=== PATIENT | female | born 2000 | race American Indian/Alaskan Native ===

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

== ENCOUNTER 2021-10-07 12:01 | Emergency (ER) | payer MEDICAID ==
[2021-10-07 14:19] LABS: HCG Qualitative,Urine Positive (Negative)
[2021-10-07 14:20] LABS: Bacteria,Urine 4+ /HPF (Negative); Bilirubin,Urine NEG (Negative); Blood,Urine MOD (Negative); Color,Urine Yellow (Yellow); Hyaline Casts,Urine 3 /LPF; Mucus,Urine 3+ /HPF; Urobilinogen,Urine < 2.0 mg/dL (<2.0)
[2021-10-07 15:02] LABS: Basophils # (Auto) 0.1 K/mm3 (0.0-0.1); Basophils % (Auto) 0.9 % (0.0-1.8); Eosinophils # (Auto) 0.2 K/mm3 (0.0-0.4); Eosinophils % (Auto) 3.1 % (0.0-4.3); Hematocrit 38.5 % (30.3-42.9); Lymphocytes # (Auto) 1.7 K/mm3 (1.2-5.4); Lymphocytes % (Auto) 28.9 % (13.4-35.0); Mean Corpuscular HGB Conc 31 % (30-34); Mean Corpuscular Volume 79 fl (79-97); Monocytes # (Auto) 0.4 K/mm3 (0.0-0.8); Monocytes % (Auto) 6.8 % (0.0-7.3); Platelet Count 288 K/mm3 (140-440); Red Blood Count 4.86 M/mm3 (3.65-5.03); Red Cell Distribution Width 18.7 % (13.2-15.2)
[2021-10-07 15:25] LABS: Alanine Aminotransferase 10 units/L (7-56); Albumin 4.9 g/dL (3.9-5); Blood Urea Nitrogen 7 mg/dL (7-17); Calcium 9.8 mg/dL (8.4-10.2); Hemolysis Index 6
[2021-10-07 15:27] LABS: BUN/Creatinine Ratio 12
--- NOTE | 2021-10-07 15:37 | Emergency Department Report ---
ED General Adult HPI - General Chief complaint: Vaginal Bleeding Stated complaint: POSSIBLE MISCARRIAGE Time Seen by Provider: 10/07/21 12:38 Source: patient Mode of arrival: Ambulatory Limitations: No Limitations - History of Present Illness Initial comments: 21-year-old -[place] female patient presents with complaints of vaginal bleeding and intermittent lower abdominal cramping x1 week. Patient states she had a positive test 1 month ago, however she has not followed up with an [facility]. She states she is G4, . She denies any pain at this time. No dysuria/hematuria/urinary frequency, vaginal discharge/dyspareunia, or fev er/chills/sweats per patient. She also denies any other past medical history or heavy vaginal bleeding. Patient states the bleeding is mild and that she passed a large clot a few days ago. Severity scale (0 -10): 0 - Related Data Previous Rx's Medication Instructions Recorded Last Taken Type cefUROXime [Ceftin] 250 mg PO Q12H #14 tablet 10/23/17 Unknown Rx Ciprofloxacin HCl [Cipro] 500 mg PO BID #20 tablet 04/06/18 Unknown Rx Dicyclomine [Bentyl] 10 mg PO QID #40 capsule 04/06/18 Unknown Rx Ibuprofen [Ibuprofen 800] 800 mg PO TID PRN #30 tablet 04/06/18 Unknown Rx Pnv,Calcium 72/Iron/Folic Acid 1 each PO DAILY #30 tablet 07/10/18 Unknown Rx [ Plus Tablet] Amoxicillin/Potassium Clav 1 each PO BID 5 Days #10 tablet 10/07/21 Unknown Rx [Augmentin 875-125 Tablet] Allergies Allergy/AdvReac Type Severity Reaction Status Date / Time No Known Allergies Allergy Verified 10/07/21 14:30 ED Review of Systems ROS: Stated complaint: POSSIBLE MISCARRIAGE Other details as noted in HPI Constitutional: denies: chills, fever, malaise Respiratory: denies: cough, shortness of breath Gastrointestinal: as per HPI. denies: nausea, vomiting, diarrhea, constipation Genitourinary: abnormal menses. denies: urgency, dysuria, frequency, hematuria, discharge, dyspareunia Musculoskeletal: denies: back pain Skin: denies: rash, lesions, change in color Hematological/Lymphatic: denies: easy bleeding, easy bruising, swollen glands ED Past Medical Hx - Past Medical History Hx Hypertension: No Hx CVA: No Hx Heart Attack/AMI: No Hx Congestive Heart Failure: No Hx Diabetes: No Hx Deep Vein Thrombosis: No Hx Pulmonary Embolism: No Hx GERD: No Hx Liver Disease: No Hx Renal Disease: No Hx Sickle Cell Disease: No Hx Arthritis: No Hx Headaches / Migraines: No Hx Seizures: No Hx Kidney Stones: No Hx Psychiatric Treatment: No Hx Asthma: No Hx COPD: No Hx Tuberculosis: No Hx Dementia: No Hx HIV: No - Surgical History Hx Coronary Stent: No Hx Open Heart Surgery: No Hx Pacemaker: No Hx Internal Defibrillator: No Hx Cholecystectomy: No Hx Appendectomy: No Hx Breast Surgery: No Additional Surgical History: left arm - Social History Smoking Status: Never Smoker - Medications Home Medications: Home Medications Medication Instructions Recorded Confirmed Last Taken Type cefUROXime [Ceftin] 250 mg PO Q12H #14 tablet 10/23/17 10/07/21 Unknown Rx Ciprofloxacin HCl [Cipro] 500 mg PO BID #20 tablet 04/06/18 10/07/21 Unknown Rx Dicyclomine [Bentyl] 10 mg PO QID #40 capsule 04/06/18 10/07/21 Unknown Rx Ibuprofen [Ibuprofen 800] 800 mg PO TID PRN #30 tablet 04/06/18 10/07/21 Unknown Rx Pnv,Calcium 72/Iron/Folic Acid 1 each PO DAILY #30 tablet 07/10/18 10/07/21 Unknown Rx [ Plus Tablet] Amoxicillin/Potassium Clav 1 each PO BID 5 Days #10 tablet 10/07/21 Unknown Rx [Augmentin 875-125 Tablet] ED Physical Exam - General Limitations: No Limitations General appearance: alert, in no apparent distress - Head Head exam: Present: atraumatic, normocephalic - Eye Eye exam: Present: normal appearance. Absent: scleral icterus - Respiratory Respiratory exam: Present: normal lung sounds bilaterally. Absent: respiratory distress - Cardiovascular Cardiovascular Exam: Present: regular rate, normal rhythm - GI/Abdominal GI/Abdominal exam: Present: soft, normal bowel sounds. Absent: distended, tenderness, guarding, rebound, rigid - Neurological Exam Neurological exam: Present: alert, oriented X3, normal gait - Psychiatric Psychiatric exam: Present: normal affect, anxious (Pacing room) - Skin Skin exam: Present: warm, dry, intact, normal color. Absent: rash ED Course Vital Signs 10/07/21 10/07/21 10/07/21 12:18 14:24 14:26 Temperature 97.9 F 98.1 F 98.1 F Pulse Rate 90 73 73 Respiratory 15 16 16 Rate Blood Pressure 123/90 121/69 Blood Pressure 121/69 [Right] O2 Sat by Pulse 100 99 99 Oximetry 10/07/21 18:14 Temperature Pulse Rate 70 Respiratory 18 Rate Blood Pressure Blood Pressure 125/74 [Right] O2 Sat by Pulse 100 Oximetry ED Medical Decision Making - Lab Data Result diagrams: 10/07/21 14:41 10/07/21 14:41 - Medical Decision Making 21-year-old -[place] female patient presents with complaints of vaginal bleeding and intermittent lower abdominal cramping x1 week. Patient states she had a positive test 1 month ago, however she has not followed up with an [facility]. She states she is G4, . She denies any pain at this time. No dysuria/hematuria/urinary frequency, vaginal discharge/dyspareunia, or fever/ chills/sweats per patient. She also denies any other past medical history or heavy vaginal bleeding. Patient states the bleeding is mild and that she passed a large clot a few days ago. No further pain noted. Ultrasound shows viable 6-week IUP without other acute abnormalities. Vomiting is controlled at this time with antiemetics. Patient given IV fluids also. Discussed findings and importance of follow-up with [facility]. Patient is stable for discharge home. Discussed signs and symptoms that should prompt immediate return to the ED, she verbalized understanding Critical care attestation.: If time is entered above; I have spent that time in minutes in the direct care of this critically ill patient, excluding procedure time. ED Disposition Clinical Impression: Threatened miscarriage, UTI in Disposition: 01 HOME / SELF CARE / HOMELESS Is pt being admited?: No Condition: Stable Instructions: Threatened Miscarriage, and Urinary Tract Infection Additional Instructions: Please follow-up with your [facility] in 2 to 3 days for repeat beta hCG level. If you are unable to see your [facility], you may come into the ED for repeat labs Prescriptions: Amoxicillin/Potassium Clav [Augmentin 875-125 Tablet] 1 each PO BID 5 Days #10 tablet Referrals: [facility] [Provider Group] - 3-5 Days [facility] [Provider Group] - 3-5 Days [facility] [Provider Group] - 3-5 Days Forms: Work/School Release Form(ED)
--- NOTE | 2021-10-07 17:49 | Ultrasound Report ---
ULTRASOUND OBSTETRIC INDICATION / CLINICAL INFORMATION: vaginal bleeding. Clinical Gestational Age (GA) in weeks, days: 11, 1 TECHNIQUE: Transabdominal and Transvaginal. COMPARISON: None available. FINDINGS: GESTATIONAL SAC: There is a hypoechoic area within the endometrium suggesting a gestational sac. Ther e is a mean sac diameter 2.1 cm. This corresponds to a 7 week 0 day gestation. YOLK SAC: Not seen EMBRYO/FETUS: Not seen ADNEXA: No significant abnormality. FREE FLUID: None. ADDITIONAL FINDINGS: None. IMPRESSION: There is a hypoechoic area within the endometrium suggesting a gestational sac. The mean sac diameter measures 2.1 cm and corresponds to a 7 week 0 day gestation; however, this mean sac diameter is too small to assess for viability and therefore repeat ultrasound in 7-10 days is recommended. Signer Name: Avery Higgins DO Signed: 10/07/2021 5:45 PM Workstation Name: [id number]
[2021-10-07 18:16] VITALS: BP 125/74
== END 2021-10-07 18:15 | disposition home or self-care (01) ==
LOC: ED 12:01
DX: O20.0 Threatened abortion (principal); O23.41 Unspecified infection of urinary tract in pregnancy, first trimester; N39.0 Urinary tract infection, site not specified; Z3A.01 Less than 8 weeks gestation of pregnancy
CPT/HCPCS: 36415; 76801; 76817; 80053; 81001; 81025; 84702; 85025; 86900; 86901; 99284

== ENCOUNTER 2022-02-28 21:40 | Emergency (ER) | payer MEDICAID ==
[2022-02-28 23:52] LABS: Basophils # (Auto) 0.1 K/mm3 (0.0-0.1); Basophils % (Auto) 0.9 % (0.0-1.8); Eosinophils # (Auto) 0.2 K/mm3 (0.0-0.4); Eosinophils % (Auto) 3.7 % (0.0-4.3); Hematocrit 39.8 % (30.3-42.9); Hemoglobin 12.5 gm/dl (10.1-14.3); Lymphocytes # (Auto) 2.3 K/mm3 (1.2-5.4); Mean Corpuscular HGB Conc 31 % (30-34); Mean Corpuscular Volume 79 fl (79-97); Monocytes # (Auto) 0.3 K/mm3 (0.0-0.8); Monocytes % (Auto) 5.4 % (0.0-7.3); Platelet Count 325 K/mm3 (140-440); Red Blood Count 5.05 M/mm3 (3.65-5.03); Red Cell Distribution Width 18.4 % (13.2-15.2)
[2022-03-01 00:11] LABS: Blood Urea Nitrogen 13 mg/dL (7-17); Calcium 10.1 mg/dL (8.4-10.2); Hemolysis Index 6
[2022-03-01 00:13] LABS: BUN/Creatinine Ratio 22
--- NOTE | 2022-03-01 01:00 | Emergency Department Report ---
ED Female HPI - General Chief complaint: Vaginal Bleeding Stated complaint: POSSIBLE MISCARRIAGE MAYBE 2 MONTHS Time Seen by Provider: 03/01/22 00:26 Source: patient Mode of arrival: Ambulatory Limitations: No Limitations - History of Present Illness Initial comments: 21-year-old black female G5, P2 presents to the emergency room for evaluation of vaginal bleeding during . She states that she had a positive test 2 weeks ago then developed intermittent bleeding 4 days ago. She states that she did have some abdominal pain and cramping initially that has improved. She states that she had increased bleeding yesterday with clots that has improved today. She states that she had a miscarriage 4 to 5 months ago. Complaint: vaginal bleeding -: Gradual, days(s) (For) Radiation: non-radiating Severity: mild Severity scale (0 -10): 3 Quality: cramping Consistency: intermittent Are you Now?: Yes Associated Symptoms: vaginal bleeding. denies: vaginal discharge, abdominal pain, nausea/vomiting, fever/chills, headaches, loss of appetite, dysuria, hematuria, shortness of breath, syncope, weakness - Related Data Sexually active: Yes Previous Rx's Medication Instructions Recorded Last Taken Type cefUROXime [Ceftin] 250 mg PO Q12H #14 tablet 10/23/17 Unknown Rx Ciprofloxacin HCl [Cipro] 500 mg PO BID #20 tablet 04/06/18 Unknown Rx Dicyclomine [Bentyl] 10 mg PO QID #40 capsule 04/06/18 Unknown Rx Ibuprofen [Ibuprofen 800] 800 mg PO TID PRN #30 tablet 04/06/18 Unknown Rx Pnv,Calcium 72/Iron/Folic Acid 1 each PO DAILY #30 tablet 07/10/18 Unknown Rx [ Plus Tablet] Amoxicillin/Potassium Clav 1 each PO BID 5 Days #10 tablet 10/07/21 Unknown Rx [Augmentin 875-125 Tablet] Allergies Allergy/AdvReac Type Severity Reaction Status Date / Time No Known Allergies Allergy Verified 10/07/21 14:30 ED Review of Systems ROS: Stated complaint: POSSIBLE MISCARRIAGE MAYBE 2 MONTHS Other details as noted in HPI Comment: All other systems reviewed and negative Constitutional: denies: chills, fever ENT: denies: congestion Respiratory: denies: cough, shortness of breath, SOB with exertion, SOB at rest, stridor, wheezing Cardiovascular: denies: chest pain, palpitations, dyspnea on exertion, o rthopnea, edema, syncope, paroxysmal nocturnal dyspnea Gastrointestinal: abdominal pain. denies: nausea, vomiting, diarrhea, hematemesis, melena, hematochezia Genitourinary: denies: urgency, dysuria, frequency, hematuria, discharge, abnormal menses Musculoskeletal: back pain Neurological: denies: headache, weakness ED Past Medical Hx - Past Medical History Hx Hypertension: No Hx CVA: No Hx Heart Attack/AMI: No Hx Congestive Heart Failure: No Hx Diabetes: No Hx Deep Vein Thrombosis: No Hx Pulmonary Embolism: No Hx GERD: No Hx Liver Disease: No Hx Renal Disease: No Hx Sickle Cell Disease: No Hx Arthritis: No Hx Headaches / Migraines: No Hx Seizures: No Hx Kidney Stones: No Hx Psychiatric Treatment: No Hx Asthma: No Hx COPD: No Hx Tuberculosis: No Hx Dementia: No Hx HIV: No - Surgical History Hx Coronary Stent: No Hx Open Heart Surgery: No Hx Pacemaker: No Hx Internal Defibrillator: No Hx Cholecystectomy: No Hx Appendectomy: No Hx Breast Surgery: No Additional Surgical History: left arm - Social History Smoking Status: Never Smoker - Medications Home Medications: Home Medications Medication Instructions Recorded Confirmed Last Taken Type cefUROXime [Ceftin] 250 mg PO Q12H #14 tablet 10/23/17 10/07/21 Unknown Rx Ciprofloxacin HCl [Cipro] 500 mg PO BID #20 tablet 04/06/18 10/07/21 Unknown Rx Dicyclomine [Bentyl] 10 mg PO QID #40 capsule 04/06/18 10/07/21 Unknown Rx Ibuprofen [Ibuprofen 800] 800 mg PO TID PRN #30 tablet 04/06/18 10/07/21 Unknown Rx Pnv,Calcium 72/Iron/Folic Acid 1 each PO DAILY #30 tablet 07/10/18 10/07/21 Unknown Rx [ Plus Tablet] Amoxicillin/Potassium Clav 1 each PO BID 5 Days #10 tablet 10/07/21 Unknown Rx [Augmentin 875-125 Tablet] ED Physical Exam - General Limitations: No Limitations General appearance: alert, in no apparent distress - Head Head exam: Present: atraumatic, normocephalic - Eye Eye exam: Present: normal appearance. Absent: conjunctival injection - Neck Neck exam: Present: normal inspection - Respiratory Respiratory exam: Present: normal lung sounds bilaterally. Absent: respiratory distress, wheezes, rales, rhonchi, stridor, chest wall tenderness - Cardiovascular Cardiovascular Exam: Present: regular rate, normal heart sounds - GI/Abdominal GI/Abdominal exam: Present: soft, normal bowel sounds. Absent: distended, tenderness, guarding, rebound, rigid - Extremities Exam Extremities exam: Present: normal inspection, normal capillary refill. Absent: pedal edema, joint swelling, calf tenderness - Back Exam Back exam: Present: normal inspection. Absent: CVA tenderness (R), CVA tenderness (L), vertebral tenderness - Neurological Exam Neurological exam: Present: alert, oriented X3, normal gait - Psychiatric Psychiatric exam: Present: normal affect, normal mood - Skin Skin exam: Present: warm, dry, intact, normal color ED Course Vital Signs 02/28/22 03/01/22 23:14 01:07 Temperature 98.2 F Pulse Rate 69 72 Respiratory 18 12 Rate Blood Pressure 100/63 110/62 [Right] O2 Sat by Pulse 100 100 Oximetry ED Medical Decision Making - Lab Data Result diagrams: 02/28/22 23:33 02/28/22 23:33 - Medical Decision Making 21-year-old black female G5, P2 presents to the emergency room for evaluation of vaginal bleeding during . She states that she had a positive test 2 weeks ago then developed intermittent bleeding 4 days ago. She states that she did have some abdominal pain and cramping initially that has improved. She states that she had increased bleeding yesterday with clots that has improved today. She states that she had a miscarriage 4 to 5 months ago. No gross abnormalities noted on exam. Patient noted to have a negative serum hCG. Discussed findings with patient, she was informed that it is probable that she has had a miscarriage given the increased pain since is now resolving. She states that she already has an appointment with OB in 1 week, and she is advised to go to that appointment. She is advised to return to the emergency department if she develops increased pain or worsening bleeding. She verbalizes understanding of and agreement with plan of care. Critical care attestation.: If time is entered above; I have spent that time in minutes in the direct care of this critically ill patient, excluding procedure time. ED Disposition Clinical Impression: Vaginal bleeding Disposition: HOME / SELF CARE / HOMELESS Is pt being admited?: No Does the pt Need Aspirin: No Condition: Stable Instructions: Miscarriage, [id number], Abnormal Uterine Bleeding, [id number] Additional Instructions: Follow-up with [facility] for further evaluation and management. Return to the emergency department as needed. Referrals: BASILIA LUIS MD [Staff Physician] - 3-5 Days [facility] [Provider Group] - 3-5 Days Forms: Work/School Release Form(ED) Time of Disposition: 00:59
[2022-03-01 01:08] VITALS: BP 110/62
== END 2022-03-01 01:30 | disposition home or self-care (01) ==
LOC: ED 21:40
DX: O20.8 Other hemorrhage in early pregnancy (principal); Z3A.01 Less than 8 weeks gestation of pregnancy
CPT/HCPCS: 36415; 80048; 84702; 85025; 99283